=== PATIENT | male | born 1970 | race Caucasian/White ===

== ENCOUNTER 2016-10-23 07:50 | Emergency (ER) | payer OTHER ==
[~2016-10-23] VITALS: Ht 188 cm; Wt 69.8 kg
[~2016-10-23 07:50] MED LIST: EFFSR150 PO; MIRT30TA2 PO
[2016-10-23 07:53] VITALS: TEMP 36.6; Ht 188 cm; Wt 69.8 kg
[2016-10-23 08:46] LABS: BASO % 0.4 %; BASO ABS # 0.04 K/uL (0-0.2); COMPLETE YES; EOS % 0.8 %; HEMATOCRIT 39.9 % (42-52); IG% 0.1 %; LYMPH ABS # 1.09 K/uL (1.2-3.4); MEAN CELL VOLUME 97.1 fL (80-100); MEAN CORPUSCULAR HGB CONC 36.1 g/dl (32-36); MEAN PLATELET VOLUME 10.3 fL (7.4-10.4); MONO % 9.8 %; NEUT % 76.9 %; PLATELET COUNT 251 K/uL (130-400); RED BLOOD COUNT 4.11 M/uL (4.7-6.1); WHITE BLOOD COUNT 9.08 K/uL (4.8-10.8)
[2016-10-23 08:57] LABS: URINE APPEARANCE CLEAR (CLEAR); URINE BILIRUBIN NEG (NEG); URINE COLOR YELLOW; URINE NITRITE NEG (NEG); URINE PH 6.5 (4.5-7.5); URINE SPECIFIC GRAVITY 1.009 (1.000-1.030); UROBILINOGEN NEG (NEG); ZZUR CULT IF INDIC CLEAN CATCH NO
--- NOTE | 2016-10-23 09:00 | DIAGNOSTIC IMAGING REPORT ---
CT SCAN OF THE BRAIN WITHOUT IV CONTRAST CLINICAL HISTORY: Fall several days ago with head injury. Change in mental status. COMPARISON STUDY: No priors. TECHNIQUE: Unenhanced axial CT scan of the brain is performed from the vertex to the skull base. Automated dose control exposure was utilized. CT DOSE: 638.56 mGycm FINDINGS: Brain parenchyma: The brain parenchyma is normal in appearance. There is no hemorrhage, mass effect, or evidence of acute territorial ischemia by CT criteria. Ge-white matter is preserved. No extra-axial fluid collection is seen. Ventricles, sulci, cisterns: Normal in configuration. Intracranial vasculature: The visualized intracranial vasculature at the skull base is normal in appearance. Calvarium: There is no depressed calvarial fracture. Sinuses and mastoids: The visualized paranasal sinuses are clear. The mastoid air cells are well pneumatized. Orbits: The bony orbits are grossly intact. IMPRESSION: No acute intracranial abnormality. Electronically signed by: Kvng White M.D. 10/23/2016 8:58 AM Dictated Date/Time: 10/23/2016 8:55 AM
[2016-10-23 09:06] LABS: MANUAL MICROSCOPIC REQUIRED? NO; REVIEW REQ? NO
[2016-10-23 09:07] LABS: BUN/CREATININE RATIO 6.4 (10-20); CALCIUM 8.4 mg/dl (8.5-10.1); POTASSIUM 3.7 mmol/L (3.5-5.1)
[2016-10-23 09:18] LABS: THYROID STIMULATING HORMONE 0.925 uIu/ml (0.300-4.500)
[2016-10-23 09:33] LABS: ACETAMINOPHEN < 2 ug/ml (10-30)
[2016-10-23 09:33] LABS: BENZODIAZEPINE, URINE NEG (NEG); COCAINE,URINE NEG (NEG); PHENCYCLIDINE, URINE NEG (NEG)
--- NOTE | 2016-10-23 09:33 | DIAGNOSTIC IMAGING REPORT ---
RIGHT TIBIA/FIBULA 2 VIEWS ROUTINE CLINICAL HISTORY: fall/lower leg injury Right trauma. Pain. COMPARISON: None. DISCUSSION: The bones and joint spaces appear intact. There is no evidence of fracture, dislocation or bony disease. There is no evidence for soft tissue swelling. IMPRESSION: Negative study. Electronically signed by: Rommel Barker M.D. 10/23/2016 9:32 AM Dictated Date/Time: 10/23/2016 9:31 AM
--- NOTE | 2016-10-23 11:54 | EMERGENCY ROOM VISIT NOTE ---
History First contact with patient: 07:57 Chief Complaint: HEAD INJURY (MINOR) Stated Complaint: INJURED HEAD, LEG, FEW OTHER ISSUES History of Present Illness The patient is a 46 year old male who presents to the Emergency Room with multiple complaints but his main complaint is head and right leg injury. The patient states that on Wednesday [place] boots on and tripped on a stone and fell onto his right lower leg. He also states that he hit the left side of his head. The patient thinks he lost consciousness for a few seconds. The patient states he has a mild headache on the left side of his head. He denies any visual changes or dizziness. The patient denies any nausea or vomiting. The patient states he was able to get up and walk on his leg after the injury occurred. He went to work yesterday and states that he has increased pain in the leg since yesterday. The patient also states that he drinks a lot of alcohol. He drinks a large bottle of wine daily. He also admits to intermittent marijuana use. The patient is also complaining that he has a lump in his right lower back. Which is painful intermittently. He has noticed it several months ago. He states it got slightly larger. The patient does not have any medical insurance nor does he have a current family doctor although he has seen Dr. German in the past. The patient has moved around a lot for the past few years. The patient is requesting help for his alcohol addiction. I initially asked him if he had any other issues and he stated he did not but later he informed me that 2 weeks ago he had suicidal ideations and obtained a gun but later he also told me that the gun was not real. He states that "he just doesn't feel right". He currently does not feel suicidal or have a plan at this time. He also admitted that he was on medication for PTSD and depression but has been off his medications for 4 months since he moved back to the area and has not gotten reestablish with a PCP or psychiatrist. He saw Dr. Bailon in the past. Review of Systems 10 system review was performed and was negative unless stated otherwise history of present illness. Past Medical/Surgical History Medical Problems: (1) Depression Social History Smoking Status: Current Every Day Smoker Alcohol Use: heavy Marital Status: Occupation Status: employed Current/Historical Medications No Active Prescriptions or Reported Meds Allergies Coded Allergies: POLLEN (Verified Allergy, Mild, 10/19/12) Sulfa Drugs (Verified Allergy, Mild, 10/19/12) Sulfamethoxazole (Unverified Allergy, Mild, 10/19/12) Bacitracin (Verified Allergy, Unknown, HIVES, 03/11/10) Physical Exam Vital Signs Date Time Temp Pulse Resp B/P Pulse Ox O2 Delivery O2 Flow Rate FiO2 10/23/16 10:21 95 18 109/68 97 Room Air 10/23/16 07:53 36.6 114 18 126/79 97 Room Air Physical Exam GENERAL 46-year-old white male appears in no acute distress. MENTAL Status: Alert and oriented 3. The patient appears slightly anxious and has mild tremor. HEAD: Atraumatic, patient has slight tenderness over the left temporal region otherwise nontender. EYES: PERRLA. EOMs intact. EARS: Canals clear. TMs without fluid level noted. NECK: Supple, no lymphadenopathy noted. No carotid bruits noted. LUNGS: Clear auscultation without wheezes rales or rhonchi. CARDIAC: Regular rate and rhythm without murmur. Pulses is full and equal throughout. ABDOMEN: Positive bowel sounds all 4 quadrants. Soft, nontender to palpation without organomegaly or masses. LUMBAR SPINE: No gross bony deformity noted there is a palpable soft tissue mobile 3 cm mass at the level of the right SI joint. No erythema. Slight tenderness palpation. NEURO:Cranial nerves two through 12 intact. Cerebellar function intact with [id number]. Fine motor intact with alternating finger motions. RIGHT LOWER LEG: There is ecchymosis noted over the anterior aspect of the lower leg. There is a palpable hematoma midshaft. Posterior calf without tenderness generalized edema noted but no erythema.. Medical Decision & Procedures ER Provider Diagnostic Interpretation: RIGHT TIBIA/FIBULA 2 VIEWS ROUTINE CLINICAL HISTORY: fall/lower leg injury Right trauma. Pain. COMPARISON: None. DISCUSSION: The bones and joint spaces appear intact. There is no evidence of fracture, dislocation or bony disease. There is no evidence for soft tissue swelling. IMPRESSION: Negative study. Electronically signed by: Rommel Barker M.D. 10/23/2016 9:32 AM Dictated Date/Time: 10/23/2016 9:[address] SCAN OF THE BRAIN WITHOUT IV CONTRAST CLINICAL HISTORY: Fall several days ago with head injury. Change in mental status. COMPARISON STUDY: No priors. TECHNIQUE: Unenhanced axial CT scan of the brain is performed from the vertex to the skull base. Automated dose control exposure was utilized. CT DOSE: 638.56 mGycm FINDINGS: Brain parenchyma: The brain parenchyma is normal in appearance. There is no hemorrhage, mass effect, or evidence of acute territorial ischemia by CT criteria. Ge-white matter is preserved. No extra-axial fluid collection is seen. Ventricles, sulci, cisterns: Normal in configuration. Intracranial vasculature: The visualized intracranial vasculature at the skull base is normal in appearance. Calvarium: There is no depressed calvarial fracture. Sinuses and mastoids: The visualized paranasal sinuses are clear. The mastoid air cells are well pneumatized. Orbits: The bony orbits are grossly intact. IMPRESSION: No acute intracranial abnormality. Electronically signed by: Kvng White M.D. 10/23/2016 8:58 AM Dictated Date/Time: 10/23/2016 8:55 AM Laboratory Results 10/23/16 08:35 Red Blood Count 4.11, Mean Corpuscular Volume 97.1, Mean Corpuscular Hemoglobin 35.0, Mean Corpuscular Hemoglobin Concent 36.1, Mean Platelet Volume 10.3, Neutrophils (%) (Auto) 76.9, Lymphocytes (%) (Auto) 12.0, Monocytes (%) (Auto) 9.8, Eosinophils (%) (Auto) 0.8, Basophils (%) (Auto) 0.4, Neutrophils # (Auto) 6.98, Lymphocytes # (Auto) 1.09, Monocytes # (Auto) 0.89, Eosinophils # (Auto) 0.07, Basophils # (Auto) 0.04 10/23/16 08:35 Test 10/23/16 08:35 10/23/16 08:41 White Blood Count 9.08 K/uL (4.8-10.8) Red Blood Count 4.11 M/uL (4.7-6.1) Hemoglobin 14.4 g/dL (14.0-18.0) Hematocrit 39.9 % (42-52) Mean Corpuscular Volume 97.1 fL (80-100) Mean Corpuscular Hemoglobin 35.0 pg (25-34) Mean Corpuscular Hemoglobin Concent 36.1 g/dl (32-36) Platelet Count 251 K/uL (130-400) Mean Platelet Volume 10.3 fL (7.4-10.4) Neutrophils (%) (Auto) 76.9 % Lymphocytes (%) (Auto) 12.0 % Monocytes (%) (Auto) 9.8 % Eosinophils (%) (Auto) 0.8 % Basophils (%) (Auto) 0.4 % Neutrophils # (Auto) 6.98 K/uL (1.4-6.5) Lymphocytes # (Auto) 1.09 K/uL (1.2-3.4) Monocytes # (Auto) 0.89 K/uL (0.11-0.59) Eosinophils # (Auto) 0.07 K/uL (0-0.5) Basophils # (Auto) 0.04 K/uL (0-0.2) RDW Standard Deviation 44.3 fL (36.4-46.3) RDW Coefficient of Variation 12.7 % (11.5-14.5) Immature Granulocyte % (Auto) 0.1 % Immature Granulocyte # (Auto) 0.01 K/uL (0.00-0.02) Anion Gap 5.0 mmol/L (3-11) Est Creatinine Clear Calc Drug Dose 93.1 ml/min Estimated GFR () 105.6 Estimated GFR (Non- 91.1 BUN/Creatinine Ratio 6.4 (10-20) Calcium Level 8.4 mg/dl (8.5-10.1) Total Bilirubin 0.6 mg/dl (0.2-1) Direct Bilirubin 0.2 mg/dl (0-0.2) Aspartate Amino Transf (AST/SGOT) 26 U/L (15-37) Alanine Aminotransferase (ALT/SGPT) 26 U/L (12-78) Alkaline Phosphatase 82 U/L (45-117) Total Protein 6.9 gm/dl (6.4-8.2) Albumin 3.9 gm/dl (3.4-5.0) Lipase 144 U/L (73-393) Thyroid Stimulating Hormone (TSH) 0.925 uIu/ml (0.300-4.500) Salicylates Level 3.7 mg/dl (2.8-20) Acetaminophen Level < 2 ug/ml (10-30) Ethyl Alcohol mg/dL < 3.0 mg/dl (0-3) Urine Color YELLOW Urine Appearance CLEAR (CLEAR) Urine pH 6.5 (4.5-7.5) Urine Specific [place] 1.009 (1.000-1.030) Urine Protein NEG (NEG) Urine Glucose (UA) NEG (NEG) Urine Ketones NEG (NEG) Urine Occult Blood NEG (NEG) Urine Nitrite NEG (NEG) Urine Bilirubin NEG (NEG) Urine Urobilinogen NEG (NEG) Urine Leukocyte Esterase NEG (NEG) Urine Opiates Screen NEG (NEG) Urine Methadone, Qualitative NEG (NEG) Urine Barbiturates NEG (NEG) Urine Phencyclidine (PCP) Level NEG (NEG) Ur Amphetamine/Methamphetamine NEG (NEG) MDMA (Ecstasy) Screen NEG (NEG) Urine Benzodiazepines Screen NEG (NEG) Urine Cocaine Metabolite NEG (NEG) Urine Marijuana (THC) POS (NEG) ECG Indication: other Rhythm: normal sinus Findings: no acute ischemic change ED Course The patient was evaluated. X-ray of the right lower leg was ordered and interpreted by the radiologist and myself as above without any acute findings. CT the head was ordered and reviewed by the radiologist as above without any acute findings. EKG was ordered and interpreted by myself without any acute findings. CBC and differential, renal profile, LFTs and lipase levels, TSH, urinalysis, medical alcohol and urine drug screen was ordered. The piano case maker spoke with the patient who wants to be evaluated by [facility]. Labs are reviewed and were unremarkable. Urine drug screen was positive for marijuana. Urinalysis was negative. Aria from [facility] evaluated the patient and stated that he currently does not meet criteria for admission nor does the patient went to be admitted. She gave him resources for [facility]. The patient was informed of all findings and discharged home in stable condition. Medical Decision Differential for the head include contusion, subdural hematoma, intracranial bleed Differential for lower leg include contusion versus fracture Due to the patient's recent suicidal ideation and planned a mental health evaluation was performed. Impression Primary Impression: Closed head injury Additional Impressions: Alcohol abuse Contusion of leg, right Depression Departure Information Dispostion Home / Self-Care Condition GOOD Prescriptions No Active Prescriptions or Reported Meds Referrals No Doctor, Assigned (PCP) Forms HOME CARE DOCUMENTATION FORM, IMPORTANT VISIT INFORMATION Patient Instructions Bruises Contusions, ED Head Injury Closed, My [facility] Additional Instructions Recommend that you use of resources that were given to you for your drug and alcohol addiction as well as for mental health follow-up. Read head injury handout instructions. Any worsening of symptoms return to ER. Tylenol as needed for pain. Recommend getting establish as soon as possible with a family physician. Problem Qualifiers Primary Impression: Closed head injury Encounter type: initial encounter Qualified Codes: S09.90XA - Unspecified injury of head, initial encounter Additional Impressions: Contusion of leg, right Encounter type: initial encounter Qualified Codes: S80.11XA - Contusion of right lower leg, initial encounter
[2016-10-23 12:01] VITALS: BP 112/76; PULSE 95; O2SAT 96
== END 2016-10-23 12:09 | disposition home or self-care (01) ==
LOC: C.EDB 07:51 → C.EDA 12:09
DX: S09.90XA Unspecified injury of head, initial encounter (principal); S80.11XA Contusion of right lower leg, initial encounter; F10.10 Alcohol abuse, uncomplicated; W01.0XXA Fall on same level from slipping, tripping and stumbling without subsequent striking against object, initial encounter; Y92.89 Other specified places as the place of occurrence of the external cause; F32.9 Major depressive disorder, single episode, unspecified; F17.210 Nicotine dependence, cigarettes, uncomplicated